=== PATIENT | female | born 1945 | race Caucasian/White ===

== ENCOUNTER 2016-10-28 10:49 | Emergency (ER) | payer OTHER ==
[~2016-10-28] VITALS: Ht 172.7 cm; Wt 76.5 kg
[~2016-10-28 10:49] MED LIST: BUPR150T3 PO; CELE20TA PO; METHTAB3 PO; PRIL20TA2 PO; SIMV20 PO; TAB-TAB PO
[2016-10-28 10:55] VITALS: BP 124/70; PULSE 72; RESP 16; TEMP 98.2; O2SAT 96
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
[2016-10-28] MEDS ORDERED: TETANUS/DIPHTHERIA TOXOID ADULT 0.5 ML VIAL IM ONE (11:30)
--- NOTE | 2016-10-28 11:51 | RADHPO ---
EXAM DATE/TIME: 10/28/2016 11:23 [facility] COMPARISON: No previous studies available for comparison. INDICATIONS : Fell yesterday and has pain in left hand, left elbow and left shoulder MEDICAL HISTORY : None. SURGICAL HISTORY : None. ENCOUNTER: Initial ACUITY: 1 day PAIN SCORE: 8/10 LOCATION: Left elbow FINDINGS: 5 views of the left elbow. There is a bulging anterior fat-pad indicating a joint effusion. Minimal c ortical undulation of the radial head neck junction indicating possible nondisplaced fracture. No dis crete fracture line identified. Bone alignment within normal limits. No evidence of joint narrowing. CONCLUSION: 1. Elbow joint effusion. In the setting of trauma, this finding indicates fracture until proven other dawkins. 2. Possible nondisplaced fracture at the radial head neck junction. Reid Stephen MD on October 28, 2016 at 11:47 Board Certified Radiologist. This report was verified electronically.
--- NOTE | 2016-10-28 11:52 | RADHPO ---
EXAM DATE/TIME: 10/28/2016 11:28 [facility] COMPARISON: No previous studies available for comparison. INDICATIONS : Fell yesterday, pain entire left hand and wrist, unable to remove ring due to swelling MEDICAL HISTORY : None. SURGICAL HISTORY : None. ENCOUNTER: Initial ACUITY: 1 day PAIN SCORE: 8/10 LOCATION: Left hand FINDINGS: 3 views left hand. Small osteophytes at the thumb CMC joint, thumb MCP joint, and bone interphalangea l joint.. Bone alignment within normal limits. No evidence of fracture. CONCLUSION: No evidence of fracture. Reid Stephen MD on October 28, 2016 at 11:50 Board Certified Radiologist. This report was verified electronically.
--- NOTE | 2016-10-28 11:53 | RADHPO ---
EXAM DATE/TIME: 10/28/2016 11:39 [facility] COMPARISON: No previous studies available for comparison. INDICATIONS : Pain left shoulder since falling yesterday MEDICAL HISTORY : None. SURGICAL HISTORY : None. ENCOUNTER: Initial ACUITY: 1 day PAIN SCORE: 8/10 LOCATION: Left shoulder FINDINGS: 4 views of the left shoulder. Bone alignment within normal limits. No evidence of fracture. Mild hyp ertrophic change of the acromioclavicular joint. Glenohumeral joint within normal limits. CONCLUSION: No evidence of fracture. Reid Stephen MD on October 28, 2016 at 11:51 Board Certified Radiologist. This report was verified electronically.
--- NOTE | 2016-10-28 11:57 | RADHPO ---
EXAM DATE/TIME: 10/28/2016 11:48 [facility] COMPARISON: No previous studies available for comparison. INDICATIONS : Trauma. Fell yesterday. Left forehead contusion. RADIATION DOSE: 69.22 CTDIvol (mGy) MEDICAL HISTORY : Carcinoma, breast. Gastroesophageal reflux disease. SURGICAL HISTORY : Hysterectomy. ENCOUNTER: Initial ACUITY: 1 day PAIN SCALE: 2/10 LOCATION: Left cranial TECHNIQUE: Multiple contiguous axial images were obtained of the head. Using automated exposure control and adj ustment of the mA and/or kV according to patient size, radiation dose was kept as low as reasonably a chievable to obtain optimal diagnostic quality images. FINDINGS: CEREBRUM: The ventricles are normal for age. No evidence of midline shift, mass lesion, hemorrhage or acute in farction. No extra-axial fluid collections are seen. POSTERIOR FOSSA: The cerebellum and brainstem are intact. The 4th ventricle is midline. The cerebellopontine angle i s unremarkable. EXTRACRANIAL: The visualized portion of the orbits is intact. SKULL: The calvaria is intact. No evidence of skull fracture. CONCLUSION: Normal examination. Ramez Cruz MD on October 28, 2016 at 11:55 Board Certified Radiologist. This report was verified electronically.
--- NOTE | 2016-10-28 12:09 | RADHPO ---
EXAM DATE/TIME: 10/28/2016 11:48 [facility] COMPARISON: No previous studies available for comparison. INDICATIONS : Trauma. Fell yesterday. Left facial bruising. RADIATION DOSE: 34.81 CTDIvol (mGy) MEDICAL HISTORY : Carcinoma, breast. Gastroesophageal reflux disease. SURGICAL HISTORY : Hysterectomy. ENCOUNTER: Initial ACUITY: 1 day PAIN SCORE: 3/10 LOCATION: Left facial TECHNIQUE: Volumetric scanning of the facial bones was performed. Using automated exposure control and adjustme nt of the mA and/or kV according to patient size, radiation dose was kept as low as reasonably achiev able to obtain optimal diagnostic quality images. FINDINGS: ORBITS: The orbital and infraorbital osseous structures are intact. The retroconal structures have a normal configuration. No radiopaque foreign bodies are seen. NASAL BONE: The nasal bone and maxillary spine are intact ZYGOMATIC ARCHES: Symmetric without evidence of fracture. Osteophytes and subchondral cysts of the right mandibular con dyle. SINUSES: The maxillary, ethmoid and frontal sinuses are intact. No air-fluid levels seen. NASAL CAVITY: The nasal septum is intact and midline. The lacrimal ducts are intact. SOFT TISSUES: No radiopaque foreign bodies seen. No soft-tissue swelling is seen. INTRACRANIAL: No intracranial air seen. CRIBIFORM PLATE: Grossly intact. CONCLUSION: No evidence of fracture. 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 Reid Stephen MD on October 28, 2016 at 12:04 Board Certified Radiologist. This report was verified electronically.
[2016-10-28] MEDS ORDERED: TRAM50TA PO (12:16)
== END 2016-10-28 13:00 | disposition home or self-care (01) ==
LOC: PHEFT 10:49
DX: S52.125A Nondisplaced fracture of head of left radius, initial encounter for closed fracture (principal); S01.511A Laceration without foreign body of lip, initial encounter; S43.402A Unspecified sprain of left shoulder joint, initial encounter; W01.0XXA Fall on same level from slipping, tripping and stumbling without subsequent striking against object, initial encounter; Y92.008 Other place in unspecified non-institutional (private) residence as the place of occurrence of the external cause; Z23 Encounter for immunization
CPT/HCPCS: 29105; 70450; 70486; 73030; 73080; 73130; 90471; 90714

== ENCOUNTER 2016-11-02 18:52 | Emergency (ER) | payer OTHER ==
[~2016-11-02] VITALS: Ht 172.7 cm; Wt 75.4 kg
[~2016-11-02 18:52] MED LIST changes: -BUPR150T3 PO; -CELE20TA PO; -METHTAB3 PO; -PRIL20TA2 PO; -SIMV20 PO; -TAB-TAB PO; +TRAM50TA PO
[2016-11-02 19:15] VITALS: BP 142/75; PULSE 72; RESP 20; TEMP 98.5; O2SAT 97
--- NOTE | 2016-11-02 20:13 | PD ---
HPI Chief Complaint: Musculoskeletal Complaint Time Seen by Provider: 20:09 (Guillermina Javed) Time Seen by Provider: 19:51 (Ayana Valdez MD) Travel History International Travel<30 days: No Contact w/Intl Traveler<30days: No Traveled to known affect area: No (Guillermina Javed) History of Present Illness HPI Patient is a 71-year-old female who presented to emergency for evaluation of left wrist pain. Patient was seen and evaluated in the emergency department on 10/28/16, she was diagnosed with a radial head fracture. Patient was given a prescription for tramadol, she did not fill that because she cannot afford it. She states the pain is an 8 out of 10. She states the pain in her wrist is worse now than it was after she initially fell. She denies any new injury or trauma. (Guillermina Javed) PFSH Past Medical History Anxiety: Yes Cancer: Yes (right breast cancer ) High Cholesterol: Yes Diabetes: No GERD: Yes Glaucoma: No Hepatitis: No Hypertension: No Radiation Therapy: Yes Thyroid Disease: No (Guillermina Javed) Past Surgical History Gynecologic Surgery: Yes (PARTIAL HYSTERECTOMY) Hysterectomy: Yes (PARTIAL - 1979/OVARIES REMOVED IN 2007) Oral Surgery: Yes (TEETH EXTRACTED) Pacemaker: No Other Surgery: Yes (Guillermina Javed) Social History Alcohol Use: Yes (2-3 TIMES A WEEK ) Tobacco Use: Yes (1/2 PACK A DAY X 35 YEARS) Substance Use: No (Guillermina Javed) Allergies-Medications (Allergen,Severity, Reaction): Coded Allergies: Darvon (Verified Adverse Reaction, Severe, NOSE ITCHES, 11/02/16) Tylenol (Verified Adverse Reaction, Severe, ITCHING, 11/02/16) Reported Meds & Prescriptions Reported Meds & Active Scripts Active Tramadol (Tramadol HCl) 50 Mg Tab 50 Mg PO Q6H PRN (Ayana Valdez MD) Review of Systems Except as stated in HPI: all other systems reviewed are Neg Musculoskeletal: Positive: Myalgias, Arthralgias, Pain (Guillermina Javed) Physical Exam Narrative GENERAL: Well-nourished, well-developed patient. SKIN: Warm and dry. HEAD: Normocephalic. EYES: No scleral icterus. No injection or drainage. NECK: Supple, trachea midline. No JVD or lymphadenopathy. CARDIOVASCULAR: Regular rate and rhythm without murmurs, gallops, or rubs. RESPIRATORY: Breath sounds equal bilaterally. No accessory muscle use. GASTROINTESTINAL: Abdomen soft, non-tender, nondistended. MUSCULOSKELETAL: No cyanosis, tetanus palpation on left wrist, no obvious deformities noted. Positive radial pulse on left, brisk less than 3 second capillary refill. Full range of motion in left hand and fingers. BACK: Nontender without obvious deformity. No CVA tenderness. (Guillermina Javed) Data Data Last Documented VS Vital Signs Date Time Temp Pulse Resp B/P Pulse Ox O2 Delivery O2 Flow Rate FiO2 11/02/16 19:15 98.5 72 20 142/75 97 (Ayana Valdez MD) Orders Wrist, Complete ([id number]) (11/02/16 ) (Ayana Valdez MD) MDM Medical Decision Making Medical Screen Exam Complete: Yes Emergency Medical Condition: Yes Interpretation(s) Vital Signs Date Time Temp Pulse Resp B/P Pulse Ox O2 Delivery O2 Flow Rate FiO2 11/02/16 19:15 98.5 72 20 142/75 97 Differential Diagnosis Fracture versus sprain versus strain versus other Narrative Course Patient is a 71-year-old female presenting to emergency department for evaluation of left wrist pain. Patient was seen and evaluated in emergency department 5 days ago and diagnosed with a radial head fracture, she states the posterior long-arm splint. She reports increasing pain in her left wrist, it was not specific imaging performed of the left wrist. There is no obvious deformity, patient is neurovascularly intact. There is no sign of compartment syndrome. Splint Brooks wrap was removed to assess for circulatory compromise. X-ray of the left wrist is negative for acute fracture or abnormality. Patient is encouraged to follow-up with Dr. Paris as scheduled on . She is encouraged to continue with Aleve or have the tramadol prescription she had given to her the other day filled area and she is encouraged to keep extremity elevated. Patient is encouraged to return to emergency department for new or worsening symptoms. Patient is stable for discharge (Guillermina Javed) Diagnosis Primary Impression: Wrist pain Qualified Code: M25.532 - Left wrist pain Referrals: Alfie Paris MD 2 days Patient Instructions: General Instructions Additional Instructions: Take medications as directed, and as previously prescribed Follow-up with your primary doctor and Dr. Paris as scheduled Return to emergency department for any new or worsening symptoms Med/Other Pt SpecificInfo: No Change to Meds (Guillermina Javed) Disposition: 01 DISCHARGE HOME Condition: Stable Guillermina Javed Nov 02, 2016 20:13 Ayana Valdez MD Nov 03, 2016 09:48
--- NOTE | 2016-11-02 21:35 | RADHPO ---
EXAM DATE/TIME: 11/02/2016 20:31 [facility] COMPARISON: No previous studies available for comparison. INDICATIONS : Left wrist pain today. No injury today; Patient fell last week and has a left elbow fracture. MEDICAL HISTORY : None. SURGICAL HISTORY : None. ENCOUNTER: Initial ACUITY: 1 day PAIN SCORE: 10/10 LOCATION: Left wrist. FINDINGS: Three view examination of the left wrist demonstrates no soft tissue swelling, dislocation, or fractu re. The carpal bones are in normal alignment. The joint spaces are maintained. Bony mineralization is normal. CONCLUSION: 1. No acute fracture identified at the left wrist. Richie Sheriff MD on November 02, 2016 at 21:32 Board Certified Radiologist. This report was verified electronically.
== END 2016-11-02 22:00 | disposition home or self-care (01) ==
LOC: PHEFT 18:52
DX: M25.532 Pain in left wrist (principal)
CPT/HCPCS: 73110; 99283

== ENCOUNTER 2017-09-14 21:04 | Emergency (ER) | payer OTHER ==
[~2017-09-14] VITALS: Ht 172.7 cm; Wt 62.0 kg
[2017-09-14 21:06] VITALS: BP 138/71; PULSE 76; RESP 20; TEMP 98.4; O2SAT 97
--- NOTE | 2017-09-14 21:41 | PD ---
HPI Chief Complaint: Laceration/Skin Injury Time Seen by Provider: 21:28 Travel History International Travel<30 days: No Contact w/Intl Traveler<30days: No Traveled to known affect area: No History of Present Illness HPI pt. cut her finger on the shattered pieces of the toilet tonedna [employer].. at work it was cracked bottom of the toilet . PFSH Past Medical History Anxiety: Yes Cancer: Yes (right breast cancer ) High Cholesterol: Yes Diabetes: No GERD: Yes Glaucoma: No Hepatitis: No Hypertension: No Radiation Therapy: Yes Thyroid Disease: No Tetanus Vaccination: < 5 Years Influenza Vaccination: Yes ?: Not Past Surgical History Gynecologic Surgery: Yes (PARTIAL HYSTERECTOMY) Hysterectomy: Yes (PARTIAL - 1979/OVARIES REMOVED IN 2007) Oral Surgery: Yes (TEETH EXTRACTED) Pacemaker: No Other Surgery: Yes Social History Alcohol Use: Yes (2-3 TIMES A WEEK ) Tobacco Use: Yes (1/2 PACK A DAY X 35 YEARS) Substance Use: No Allergies-Medications (Allergen,Severity, Reaction): Coded Allergies: codeine (Verified Allergy, Severe, Itching, 09/14/17) acetaminophen (Unverified Adverse Reaction, Severe, ITCHING, 09/14/17) propoxyphene (Unverified Adverse Reaction, Severe, NOSE ITCHES, 09/14/17) Reported Meds & Prescriptions Reported Meds & Active Scripts Active Ibuprofen 800 Mg Tab 800 Mg PO Q6HR PRN Keflex (Cephalexin) 250 Mg Cap 250 Mg PO Q6H Review of Systems Except as stated in HPI: all other systems reviewed are Neg Skin: Positive Other (finger laceration ) Physical Exam Narrative GENERAL: non toxic awake AOX3 SKIN: Warm and dry. HEAD: Atraumatic. Normocephalic. EYES: Pupils equal and round. No scleral icterus. No injection or drainage. ENT: No nasal bleeding or discharge. Mucous membranes pink and moist. NECK: Trachea midline. No JVD. CARDIOVASCULAR: Regular rate and rhythm. RESPIRATORY: No accessory muscle use. Clear to auscultation. Breath sounds equal bilaterally. GASTROINTESTINAL: Abdomen soft, non-tender, nondistended. Hepatic and splenic margins not palpable. MUSCULOSKELETAL: Extremities without clubbing, cyanosis, or edema. No obvious deformities. NEUROLOGICAL: Awake and alert. No obvious cranial nerve deficits. Motor grossly within normal limits. Five out of 5 muscle strength in the arms and legs. Normal speech. PSYCHIATRIC: Appropriate mood and affect; insight and judgment normal. 3 rd finger distal tip of left hand 3 cm lac jagged edges , hematoma removed that had collected there Data Data Last Documented VS Vital Signs Date Time Temp Pulse Resp B/P (MAP) Pulse Ox O2 Delivery O2 Flow Rate FiO2 09/14/17 21:06 98.4 76 20 138/71 (93) 97 Orders Orders Lidocai-Epi 2%-1:100,000 Inj (Xylocaine- (09/14/17 21:45) Cephalexin (Keflex) (09/14/17 21:45) Finger ([id number]) (09/14/17 ) Lidocaine 2% Inj (Xylocaine 2% Inj) (09/14/17 22:30) Ed Discharge Order (09/14/17 22:56) MDM Medical Decision Making Medical Screen Exam Complete: Yes Emergency Medical Condition: Yes Differential Diagnosis laceration vs osteo , vs bone fracture other Narrative Course suture repair Xray for FB r/o and then pt bactiracin and 7 dyas follow up suture removal Procedures Procedure Narrative finger tip laceration to the middle finger left hand , pt lido 2 % was infiltrated and then betadine prep and then 5 5.0 proline sustres were placed bacitracin applied and telfa wrapped , keflex PO prophylaxis Diagnosis Primary Impression: Laceration of finger of left hand without damage to nail Qualified Codes: S61.213A - Laceration without foreign body of left middle finger without damage to nail, initial encounter Patient Instructions: General Instructions, Laceration (ED) Additional Instructions: Return for sutures out in 7 days .. Pt to take keflex 4 times a day for 5 days . return to ER for any sign of infection . Scripts Ibuprofen (Ibuprofen) 800 Mg Tab 800 MG PO Q6HR Y for PAIN, #20 TAB 0 Refills Prov: Adilson Miles MD 09/14/17 Cephalexin (Keflex) 250 Mg Cap 250 MG PO Q6H for Infection, #20 CAP 0 Refills Prov: Adilson Miles MD 09/14/17 Disposition: 01 DISCHARGE HOME Condition: Good Adilson Miles MD Sep 14, 2017 21:41
[2017-09-14] MEDS ORDERED: LIDOCAINE 2%/EPINEPHrine 1:100,000 20ML MDV NERV BLOCK ONE (21:45)
[2017-09-14] MEDS ORDERED: CEPHALEXIN MONOHYDRATE 500 MG CAP PO ONE (21:45)
--- NOTE | 2017-09-14 22:08 | RADRPT ---
EXAM DATE/TIME: 09/14/2017 21:46 [facility] COMPARISON: No previous studies available for comparison. 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 MEDICAL HISTORY : None. SURGICAL HISTORY : None. ENCOUNTER: Initial ACUITY: 1 day PAIN SCORE: 8/10 LOCATION: Left hand, distal third digit. FINDINGS: Examination of the third digit of the left hand demonstrates no evidence of fracture or dislocation. No radiopaque foreign bodies are seen. The soft tissues are intact. Prominent gauze bandage about the distal 3rd digit. CONCLUSION: The osseous structures of the 3rd digit are intact. No foreign bodies. Daniel Call MD on September 14, 2017 at 22:02 Board Certified Radiologist. This report was verified electronically.
[2017-09-14] MEDS ORDERED: LIDOCAINE HCL 2% 20 ML VIAL INFIL ONE (22:15)
[2017-09-14] MEDS ORDERED: LIDOCAINE HCL 2% 50 ML VIAL INFIL ONE (22:30)
[2017-09-14] MEDS ORDERED: IBUP1TAB7 PO (22:51)
[2017-09-14] MEDS ORDERED: CEPH-459 PO (22:51)
== END 2017-09-14 23:21 | disposition home or self-care (01) ==
LOC: PHEFT 21:04
DX: S61.213A Laceration without foreign body of left middle finger without damage to nail, initial encounter (principal); W26.8XXA Contact with other sharp object(s), not elsewhere classified, initial encounter; Y99.0 Civilian activity done for income or pay
CPT/HCPCS: 12002; 73140